=== PATIENT | female | born 2000 | race Hispanic/Latino ===

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

== ENCOUNTER 2018-07-16 17:14 | Emergency (ER) | payer OTHER, SELFPAY ==
[2018-07-16] MEDS ORDERED: TETANUS/DIPHTHERIA TOXOID [ADULT] 0.5 ML VIAL IM ONE (18:40)
== END 2018-07-16 18:45 | disposition home or self-care (01) ==
LOC: EDH 17:14
DX: S62.632A Displaced fracture of distal phalanx of right middle finger, initial encounter for closed fracture (principal); S61.312A Laceration without foreign body of right middle finger with damage to nail, initial encounter; W26.8XXA Contact with other sharp object(s), not elsewhere classified, initial encounter; Y93.89 Activity, other specified; Y92.69 Other specified industrial and construction area as the place of occurrence of the external cause; Y99.8 Other external cause status
CPT/HCPCS: 12001; 73140; 90471; 90714

== ENCOUNTER 2019-12-14 15:51 | Observation (INO) | payer MEDICAID ==
[~2019-12-14] VITALS: Ht 165.1 cm; Wt 84.4 kg
[2019-12-14 17:10] LABS: BASOPHILS % (AUTO) 0.4 % (0.0-5.0); EOSINOPHILS % (AUTO) 0.4 % (0.0-8.0); HEMATOCRIT 36.5 % (36-48); LYMPHOCYTES % (AUTO) 16.6 % (21.0-51.0); MEAN CORPUSCULAR HEMOGLOBIN 28.8 pg (27.0-33.0); MEAN CORPUSCULAR HGB CONC 33.7 g/dL (32.0-36.0); MEAN CORPUSCULAR VOLUME 85.5 fL (80-100); MONOCYTES % (AUTO) 9.7 % (3.0-13.0); NEUTROPHILS % (AUTO) 72.6 % (40.0-77.0); PLATELET COUNT (AUTO) 237 K/uL (130-400); RED BLOOD CELL COUNT(AUTO) 4.27 MIL/uL (4.00-5.50); WHITE BLOOD COUNT (AUTO) 11.3 K/uL (4.8-10.8)
[2019-12-14 17:19] LABS: APPEARANCE,URINE Cloudy (CLEAR); BILIRUBIN,URINE Negative (NEGATIVE); COLOR,URINE Dark Yellow (YELLOW); GLUCOSE, URINE (UA) Negative (NEGATIVE); KETONES,URINE Trace mg/dL (NEGATIVE); LEUKOCYTE ESTERASE ,URINE Negative (NEGATIVE); NITRATE,URINE Negative (NEGATIVE); OCCULT BLOOD,URINE Negative (NEGATIVE); PROTEIN,URINE POS 1+ mg/dL (NEGATIVE)
[2019-12-14 17:23] LABS: ALBUMIN 2.8 g/dL (3.5-5.0); BILIRUBIN,TOTAL 0.2 mg/dL (0.2-1.0); CREATININE 0.5 mg/dL (0.5-1.5); POTASSIUM 3.8 mmol/L (3.5-5.1); TOTAL PROTEIN, SERUM 7.2 g/dL (6.0-8.3); URIC ACID 4.1 mg/dL (2.6-7.2)
[2019-12-14 17:27] LABS: INR 0.85 (0.85-1.15); PARTIAL THROMBOPLASTIN TIME 24.9 SEC (26.3-35.5); PROTHROMBIN TIME 9.2 SEC (9.6-11.6)
[2019-12-14 17:28] LABS: BACTERIA,URINE Few /HPF (None Seen); MUCUS,URINE Few LPF (None Seen); SQUAMOUS EPITHELIAL CELL,UR Few /HPF (0-2)
[2019-12-14 18:12] VITALS: BP 123/71
== END 2019-12-14 18:18 | disposition home or self-care (01) ==
LOC: EDH 15:51 → LDH 16:17
PROVIDERS: ADMIT Obstetrics & Gynecology; ATTEND Obstetrics & Gynecology
DX: O13.3 Gestational [pregnancy-induced] hypertension without significant proteinuria, third trimester (principal); Z3A.36 36 weeks gestation of pregnancy
CPT/HCPCS: 36415; 80053; 81001; 84550; 85025; 85384; 85610; 85730; 99284; G0378 ×2

== ENCOUNTER 2019-12-31 12:36 | Inpatient (IN) | payer MEDICAID ==
[~2019-12-31] VITALS: Ht 162.6 cm; Wt 86.2 kg
[2019-12-31] MEDS ORDERED: LACTATED RINGERS 1000ML IV PRN (13:00)
[2019-12-31] MEDS ORDERED: LACTATED RINGERS 1000ML 1,000 ML IV PRN (13:16)
[2019-12-31 13:19] VITALS: BP 127/65
[2019-12-31] MEDS ORDERED: NALOXONE HCL 0.4 MG/1 ML ML IV PRN (13:30)
[2019-12-31] MEDS ORDERED: EPHEDRINE SULFATE 50 MG/ML AMPULE IVP PRN (13:30)
[2019-12-31] MEDS ORDERED: LACTATED RINGERS 500 ML 500 ML IV PRN (13:30)
[2019-12-31] MEDS ORDERED: ROPIVACAINE 0.2% 100ML VIAL 100 ML EP SCH (13:30)
[2019-12-31 13:32] LABS: MEAN CORPUSCULAR HEMOGLOBIN 28.1 pg (27.0-33.0); MEAN CORPUSCULAR HGB CONC 33.2 g/dL (32.0-36.0); MEAN CORPUSCULAR VOLUME 84.6 fL (80-100); RED BLOOD CELL COUNT(AUTO) 4.49 MIL/uL (4.00-5.50); RED CELL DISTRIBUTION WIDTH 13.4 % (11.0-15.5); WHITE BLOOD COUNT (AUTO) 11.7 K/uL (4.8-10.8)
[2019-12-31 13:54] LABS: APPEARANCE,URINE CLOUDY (CLEAR); BILIRUBIN,URINE NEGATIVE (NEGATIVE); COLOR,URINE YELLOW (YELLOW); GLUCOSE, URINE (UA) NEGATIVE (NEGATIVE); KETONES,URINE 5 mg/dL (NEGATIVE); LEUKOCYTE ESTERASE ,URINE SMALL (NEGATIVE); NITRATE,URINE NEGATIVE (NEGATIVE); OCCULT BLOOD,URINE TRACE-LYSED (NEGATIVE); PROTEIN,URINE 30 mg/dL (NEGATIVE); UROBILINOGEN,URINE 0.2 mg/dL (0.2-1.0)
[2019-12-31] MEDS ORDERED: AMPICILLIN 2GM+NS 100ML 100 ML IV SCH (14:00)
[2019-12-31 14:04] LABS: BACTERIA,URINE Moderate /HPF (None Seen); RBC,URINE 0-1 /HPF (0-1); SQUAMOUS EPITHELIAL CELL,UR Moderate /HPF (0-2); WBC,URINE 26-50 /HPF (0-1)
[2019-12-31 14:18] LABS: AMPHET/METH SCREEN,URINE NEGATIVE (NEGATIVE); BARBITURATE SCREEN, URINE NEGATIVE (NEGATIVE); BENZODIAZEPINES SCREEN,URINE NEGATIVE (NEGATIVE); CANNABINOID SCREEN,URINE NEGATIVE (NEGATIVE); COCAINE SCREEN,URINE NEGATIVE (NEGATIVE); OPIATE SCREEN,URINE NEGATIVE (NEGATIVE); PHENCYCLIDINE SCREEN,URINE NEGATIVE (NEGATIVE)
[2019-12-31] MEDS ORDERED: OXYTOCIN 10 USP UNITS/ML 20 UNIT in LACTATED RINGERS 1000ML 1,000 ML IV SCH (15:30)
[2019-12-31] MEDS ORDERED: OXYTOCIN-LR 20 UNITS/1000 ML 1,000 ML IV ONE ×2 (16:19→23:51)
[2019-12-31] MEDS ORDERED: AMPICILLIN 1GM+NS 50ML 50 ML IV ONE (17:54)
[2019-12-31] MEDS ORDERED: LIDOCAINE HCL 1% 20 ML VIAL ONE (19:53)
[2019-12-31] MEDS ORDERED: AMPICILLIN 1GM+NS 50ML 50 ML IV SCH (20:00)
[2019-12-31] MEDS ORDERED: WITCH HAZEL 1 PAD TP PRN (21:45)
[2019-12-31] MEDS ORDERED: ACETAMINOPHEN 325 MG TAB PO PRN (21:45)
[2019-12-31] MEDS ORDERED: LANOLIN 30GM OINTMENT TP PRN (21:45)
[2019-12-31] MEDS ORDERED: BENZOCAINE/LANOLIN/ALOE VERA 60 ML AEROSOL TP PRN (21:45)
[2019-12-31] MEDS ORDERED: ACETAMINOPHEN-CODEINE 300/30MG TAB PO PRN (21:45)
[2019-12-31] MEDS ORDERED: DIPH,PERTUSS(ACELL),TET VAC/PF 0.5 ML VIAL IM PRN (21:45)
[2019-12-31] MEDS ORDERED: MEASLES/MUMPS/RUBELLA VACCINE, LIVE 0.5 ML/VIAL SQ PRN (21:45)
[2019-12-31] MEDS: IBUPROFEN 600 MG TABLET PO PRN (22:52)
--- NOTE | 2020-01-01 00:50 | NUR ---
PT GIVEN DERMAPLAST AND TUCKS PADS INDICATIONS AND USAGE EXPLAINED TO PT. PT VERBALIZED UNDERSTANDING
[2020-01-01 02:00] VITALS: BP_SYST 128; BP_SYST 132; BP_DIAS 58; BP_DIAS 64
--- NOTE | 2020-01-01 04:00 | NUR ---
REPORT GIVEN TO JOSHUA MCDERMOTT
[2020-01-01 04:50] VITALS: BP 101/57
[2020-01-01] MEDS ORDERED: IRON-23 PO (05:20)
[2020-01-01] MEDS ORDERED: PREN-188 PO (05:20)
[2020-01-01 08:10] VITALS: BP 133/72
--- NOTE | 2020-01-01 08:10 | NUR ---
PHYSICAL ASSESSMENT DONE AND PATIENT DENIES ANY PROBLEMS WITH ACTIVITY. DENIES ANY DIZZINESS ON AMBULATION. PIV IS PATENT AND NO EDEMA, LEAKAGE OR REDNESS NOTED TO SITE. IV REMOVED #2 PITOCIN IS COMPLETED AND DISCHARGE ORDER RECEIVED FROM DR. MACIAS THIS A.M. PATIENT CAN BE DISCHARGED IF BABY IS DISCHARGED TODAY AFTER 1830.
[2020-01-01] MEDS: IBUPROFEN 600 MG TABLET PO PRN ×2 (08:38→16:15)
[2020-01-01] MEDS ORDERED: DOCUSATE SODIUM 100 MG CAP PO SCH (09:00)
[2020-01-01 12:00] VITALS: BP 133/75
--- NOTE | 2020-01-01 16:15 | NUR ---
MEDICATED PATIENT WITH MOTRIN AND DISCHARGE INSTRUCTIOND GIVEN AT THIS TIME. PATIENT VERBALIZED UNDERSTANDING INSTRUCTIONS GIVEN AND WILL TAKE MOTRIN OVER THE COUNTER FOR PAIN NEEDED. DOSAGE AND FREQUENCIES EXPLAINED TO PATIENT AND VERBALIZED UNDERSTANDING INSTRUCTIONS GIVEN. SHE WILL ALSO BE CALLING TOMORROW TO SCHEDULE A FOLLOW UP APPOINTMENT WITH DR. GOLDSTEIN.
--- NOTE | 2020-01-01 19:00 | NUR ---
DISCHARGED TO PATIENT AND PATIENT WAS TAKEN AT THIS TIME VIA W/C CARRYING BABY IN ARMS TO FAMILY VEHICLE AND DISCHARGED TO SIGNIFICANT OTHER IN STABLE CONDITION.
[2020-01-02 21:07] LABS: HEPATITIS Bs ANTIGEN SCREEN P Negative (Negative)
== END 2020-01-01 19:00 | disposition home or self-care (01) | DRG 560 ==
LOC: EDH 12:36 → OBSVTOIN 12:37 → LDH 12:37 → WSH 23:51
PROVIDERS: ADMIT Obstetrics & Gynecology; ATTEND Obstetrics & Gynecology
PROC: 3E0134Z Introduction of Serum, Toxoid and Vaccine into Subcutaneous Tissue, Percutaneous Approach (ICD-10-PCS; 2019-12-31)
PROC: 3E0234Z Introduction of Serum, Toxoid and Vaccine into Muscle, Percutaneous Approach (ICD-10-PCS; principal; 2020-01-01)
PROC: 10E0XZZ Delivery of Products of Conception, External Approach (ICD-10-PCS; 2020-01-01)
PROC: 0W8NXZZ Division of Female Perineum, External Approach (ICD-10-PCS; 2020-01-01)
PROC: 3E0234Z Introduction of Serum, Toxoid and Vaccine into Muscle, Percutaneous Approach (ICD-10-PCS; 2020-01-01)
PROC: 3E0R3BZ Introduction of Anesthetic Agent into Spinal Canal, Percutaneous Approach (ICD-10-PCS; 2020-01-01)
PROC: 00HU33Z Insertion of Infusion Device into Spinal Canal, Percutaneous Approach (ICD-10-PCS; 2020-01-01)
PROC: 10907ZC Drainage of Amniotic Fluid, Therapeutic from Products of Conception, Via Natural or Artificial Opening (ICD-10-PCS; 2020-01-01)
DX: O99.824 Streptococcus B carrier state complicating childbirth (principal); Z37.0 Single live birth; Z67.41 Type O blood, Rh negative; Z23 Encounter for immunization; Z3A.39 39 weeks gestation of pregnancy
CPT/HCPCS: 36415; 80305; 81001; 83033; 85027; 86592; 86701; 86850; 86900; 86901; 87088; 87340; 87390; 90715; A4314; A4606; G0378; J0290; J2590; J2791; J2795; J7120